=== PATIENT | female | born 1995 | race Hispanic/Latino ===

== ENCOUNTER 2017-04-08 17:16 | Emergency (ER) | payer OTHER ==
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
[2017-04-08 18:17] LABS: HCG,QUALITATIVE URINE NEGATIVE (NEGATIVE)
[2017-04-08 18:21] LABS: SQUAMOUS EPITHIAL 4 /hpf (0-5); URINE BACTERIA RARE (<OCC); URINE BILIRUBIN NEGATIVE (NEGATIVE); URINE CLARITY Clear (Clear); URINE COLOR Yellow (YELLOW); URINE GLUCOSE (UA) NORMAL (Normal); URINE LEUKOCYTE ESTERASE NEG Leu/uL (Negative); URINE NITRATE NEGATIVE (NEGATIVE); URINE PROTEIN NEGATIVE (NEGATIVE); URINE UROBILINOGEN NORMAL mg/dL (0.2-1.0)
[2017-04-08 18:27] LABS: URINE BLOOD TRACE (NEGATIVE)
[2017-04-08] MEDS ORDERED: Emtricitabine-Tenofovir 200 mg-300 mg Tab PO STA (19:01)
[2017-04-08] MEDS ORDERED: cefTRIAXone (Rocephin) 250 mg Inj IM STA (19:01)
[2017-04-08 20:55] LABS: ALB/GLOB RATIO 1.4 (1.0-2.1)
[2017-04-08 21:36] LABS: ALT/SGPT 26 U/L (9-52); AST/SGOT 26 U/L (14-36); BLOOD UREA NITROGEN 11 mg/dL (7-17); CALCIUM 9.8 mg/dl (8.6-10.4); GFR AFRICAN-AMERICAN > 60; GFR NON-AFRICAN AMERICAN > 60
[2017-04-08 21:59] VITALS: BP 126/80; PULSE 88; RESP 20; TEMP 98.7; O2SAT 98
[2017-04-09] MEDS ORDERED: Emtricitabine-Tenofovir 200 mg-300 mg Tab PO SCH (10:00)
== END 2017-04-08 21:59 | disposition home or self-care (01) ==
LOC: C.ER 17:16
DX: T74.21XA Adult sexual abuse, confirmed, initial encounter (principal)
CPT/HCPCS: 80053; 81001; 84703; 86592; 86703; 86706; 96372; 99285; J0696